=== PATIENT | male | born 1990 | race Caucasian/White ===

== ENCOUNTER 2019-02-25 10:35 | Emergency (ER) | payer SELFPAY ==
[~2019-02-25] VITALS: Ht 180.3 cm; Wt 104.3 kg
[2019-02-25 10:45] VITALS: BP 114/72; TEMP 97.2
[2019-02-25] MEDS ORDERED: IMITREX50 MG PO (11:08)
[2019-02-25] MEDS ORDERED: FLEXERIL 1010 MG/TAB PO (11:08)
[2019-02-25] MEDS ORDERED: MULTI VITAMINS1 TAB PO (11:09)
[2019-02-25] MEDS ORDERED: WELLBUTRIN XL150 MG PO (11:09)
[2019-02-25] MEDS ORDERED: BUSPAR5 MG PO (11:11)
[2019-02-25] MEDS ORDERED: MINIPRESS 1M1 MG/CAP PO (11:12)
[2019-02-25] MEDS ORDERED: MELATIN 3 MG-11 TAB PO (11:13)
[2019-02-25 11:44] LABS: BASO % 0.5 % (0.0-2.0); EOS # 0.2 (0.0-0.7); EOS % 2.6 % (0-4.0); GRAN # 3.4 (1.4-6.5); GRAN % 58.6 % (42.2-75.2); HEMATOCRIT 40.1 % (42.0-52.0); HEMOGLOBIN 13.8 g/dl (13.5-18.0); LYMPH # 1.7 (1.2-3.4); LYMPH % 28.9 % (20.0-51.0); MEAN CELL VOLUME 88 fl (80.0-100.0); MEAN CORPUSCULAR HEMOGLOBIN 30 pg (27.0-31.0); MEAN CORPUSCULAR HGB CONC 34 g/dl (33.0-37.0); MEAN PLATELET VOLUME 9.7 fl (7.4-10.4); MONO # 0.5 (0.1-0.6); MONO % 9.1 % (1.7-9.3); PLATELET COUNT 176 K/mm3 (130-400); RED BLOOD COUNT 4.54 M/mm3 (4.20-5.60); REDCELL DISTRIBUTION WIDTH-CV 12.4 % (11.5-14.5)
[2019-02-25 11:55] LABS: ALBUMIN 4.1 gm/dL (3.5-5.0); BILIRUBIN,TOTAL 0.7 mg/dL (0.0-1.0); CALCIUM 9.2 mg/dL (8.4-10.2); CREATININE, serum 1.03 (0.66-1.25); POTASSIUM 4.2 mmol/L (3.4-5.0); TOTAL PROTEIN 7.3 gm/dL (6.4-8.2)
[2019-02-25 12:11] LABS: PROLACTIN 23.7 ng/mL (3.7-17.9)
[2019-02-25 12:58] VITALS: PULSE 71
== END 2019-02-25 12:58 | disposition home or self-care (01) ==
LOC: COL.ER 10:35
PROVIDERS: Family Medicine
DX: S01.111A Laceration without foreign body of right eyelid and periocular area, initial encounter (principal); R55 Syncope and collapse; F43.10 Post-traumatic stress disorder, unspecified; F41.9 Anxiety disorder, unspecified; J32.9 Chronic sinusitis, unspecified; W22.8XXA Striking against or struck by other objects, initial encounter
CPT/HCPCS: J7030